=== PATIENT | male | born 1970 | race Two or more races ===

== ENCOUNTER 2018-06-03 05:43 | Day surgery (SDC) | payer OTHER ==
[~2018-06-03 05:43] MED LIST: MIRALAX17 GM PO; PREVACID30 MG PO; SYSTANE 0.3-0.415 ML OP; ZANTAC300 MG PO
[2018-06-03] MEDS ORDERED: PERCOCET 5-3251 EACH PO (07:55)
[2018-06-03] MEDS ORDERED: RECTICARE30 GM TOP (07:56)
[2018-06-03] MEDS ORDERED: ZANTAC150 MG PO (09:51)
[2018-06-03] MEDS ORDERED: MIRALAX510 GM PO (09:51)
== END 2018-06-03 13:10 | disposition home or self-care (01) ==
LOC: CIR.AMB 05:43
DX: K60.1 Chronic anal fissure (principal)

== ENCOUNTER 2018-12-04 15:47 | Emergency (ER) | payer OTHER ==
[~2018-12-04] VITALS: Ht 172.7 cm; Wt 69.9 kg
[~2018-12-04 15:47] MED LIST changes: +MIRALAX510 GM PO; +PERCOCET 5-3251 EACH PO; +RECTICARE30 GM TOP; +ZANTAC150 MG PO
== END 2018-12-04 22:22 | disposition home or self-care (01) ==
LOC: ER 15:47
DX: K62.89 Other specified diseases of anus and rectum (principal)

== ENCOUNTER 2019-03-22 06:00 | Day surgery (SDC) | payer OTHER | END 2019-03-22 09:45 | disposition home or self-care (01) | LOC: AMB-ENDOS 06:00 | DX: D12.5 Benign neoplasm of sigmoid colon (principal) ==

== ENCOUNTER 2022-05-26 07:37 | Emergency (ER) | payer OTHER ==
[~2022-05-26] VITALS: Ht 172.7 cm; Wt 65.8 kg
[2022-05-26] MEDS ORDERED: PANTOPRAZOLE SO40 MG PO (07:50)
== END 2022-05-26 20:41 | disposition home or self-care (01) ==
LOC: ER 07:37
DX: K59.4 Anal spasm (principal); K62.89 Other specified diseases of anus and rectum; Z91.018 Allergy to other foods; Z88.0 Allergy status to penicillin